=== PATIENT | female | born 2000 ===

== ENCOUNTER 2023-06-30 21:25 | Emergency (ER) | payer MEDICAID, SELFPAY ==
[2023-06-30 21:56] VITALS: BP 111/69; PULSE 94; RESP 18; TEMP 37.1; O2SAT 99; BMI 25.7
--- NOTE | 2023-06-30 22:10 | CRLHL7_ITS ---
For Patients: As a result of the Century Cures Act, medical imaging exams and procedure reports are released immediately into your electronic medical record. You may view this report before your referring provider. If you have questions, please contact your health care provider. INDICATION: First trimester dating. TECHNIQUE: Ultrasound OB pelvis transabdominal and transvaginal. Real-time aceves-scale imaging of the pelvis was performed. COMPARISON: None. FINDINGS: Intrauterine gestation: Present. Embryo present: Yes. Embryo cardiac activity: None. [place] rump Length: 2.9 cm. Sonographic gestational age: 9 weeks and 5 days. Sonographic estimated due date: 01/28/2024. Yolk sac: Normal. Perigestational hemorrhage: Small amount of subchorionic hypoechogenicity, compatible with subchorionic hematoma. Ovaries and adnexae: Unremarkable. No suspicious lesions or fluid collections. IMPRESSION: Intrauterine gestation without sonographic evidence of cardiac activity, concerning for nonviable . Small subchorionic hemorrhage. Obstetric consultation is advised. Dictated by Higinio Fiore MD @ 06/30/2023 11:42:44 PM (Electronically Signed)
[2023-06-30 22:47] LABS: Chloride* 106 mmol/L (96-114); Potassium* 3.6 mmol/L (3.6-5.1); Sodium* 141 mmol/L (135-149)
[2023-06-30 22:50] LABS: Anion Gap 11 mEq/L (7-15); Blood Urea Nitrogen* 3 mg/dL (5-24); Carbon Dioxide* 24 mmol/L (20-32); Creatinine* 0.4 mg/dL (0.5-1.5); Est. Creatinine Clearance* 169.29; Estimated Glomerular Filt Rate 145 ml/min
[2023-06-30 22:51] LABS: Calcium* 9.7 mg/dL (8.4-10.6); Glucose* 98 mg/dL (60-115)
--- NOTE | 2023-06-30 22:59 | ED.GENADULT ---
HPI - General Adult General Date Seen: 06/30/23 Chief complaint: OB/Uterine Contractions Stated complaint: Contractions,Abdominal pain/Bleeding Time Seen by Provider: 06/30/23 21:58 History of Present Illness HPI narrative: This is a 22-year-old female. she speaks Malawian as her primary language and does not speak much Serbian. She presents to the ER today with her friend. They declined a spot formal shop mechanic to me and they 1 her friend to interpret. She is . She follows with the [facility] for her care. She believes she is about 14 weeks based on ultrasound done through [facility]. She reports this morning she is having some uterine/suprapubic discomfort in her abdomen. It is crampy. It shoots and comes and goes. She is also having some light pink spotting per vagina. No fever. No dysuria. No urgency or frequency. Bowel movements normal. No flank pain. No recent illness or any known abdominal injury. She says she follows with the [facility] clinic. She knows that she is 14 weeks based on previous obstetric ultrasound. When I pull up her records through [facility] everywhere to review of colitis results I see that she was actually seen earlier this morning in the clinic by Dr. Sheldon. From the clinic note 06/30/2023, doctors and IUFD at less than 20 weeks of gestation- Patient presents for repeat ultrasound (first US showed enlarged yolk sac). Unfortunately, US shows no heart tones. Formal radiology read pending. Unclear measurements. Discussed options for evacuation of uterus. Patient wishes to consider options and return tomorrow. Will come back tomorrow morning at 10 am to continue conversation. Recommend urgent evaluation with fever, heavy bleeding, severe pain. Patient is in agreement with plan. Partner is also in attendance. Work note is provided. Recheck-I read obtain further history using the formal iPad shop mechanic. It turns out the patient did have a checkup with her OB doctor at the [facility] this morning. The patient was aware that she had an ultrasound showing that her baby did not have a heartbeat. She says that overall her pain at this time is light and that her bleeding is light and pink. She is not soaking through more than 1 pad all evening. She came to the ER tonight because she wanted a 2nd opinion. She did not want to believe that her baby was and that she was having a miscarriage. She does not know her blood type. Related Data Home Medications Medication Instructions Recorded Confirmed 06/30/23 Allergies Allergy/AdvReac Type Severity Reaction Status Date / Time No Known Drug Allergies Allergy Verified 06/30/23 21:59 Exam Narrative: Exam Narrative: Constitutional: Appears well-developed and well-nourished. Alert. Conversant. Non toxic. HENT: Head: Atraumatic. Nose: Nose normal. Mouth/Throat: Oral mucosa is clear and moist. no trismus. Pharynx normal. Tonsils symmetric. No tonsillar enlargement, erythema, or exudate. Eyes: Conjunctivae normal. EOM normal. Pupils equal, round, and reactive to light. No scleral icterus. Neck: Normal range of motion. Neck supple. No tracheal deviation present. Cardiovascular: Normal rate, regular rhythm. No gallop. No friction rub. No murmur heard. Symmetric radial artery pulses. Normal cap refill. Pulmonary/Chest: Effort normal. No stridor. No respiratory distress. No wheezes. No rales. No rhonchi . No tenderness. Abdominal: Soft. Bowel sounds normal. No distension. No mass. Suprapubic tenderness. I think she does have some suprapubic fullness likely a gravid uterus, but is well below her umbilicus. No rebound. No guarding. Musculoskeletal: RUE: Normal range of motion. No tenderness. No deformity LUE: Normal range of motion. No tenderness. No deformity RLE: Normal range of motion. No edema. No tenderness. No deformity LLE: Normal range of motion. No edema. No tenderness. No deformity Neurological: Alert and oriented to person, place, and time. Normal strength. CN II-VII intact. No sensory deficit. GCS eye subscore is 4. GCS verbal subscore is 5. GCS motor subscore is 6. Normal coordination Skin: Skin is warm and dry. No rash noted. No pallor. Normal capillary refill. Psychiatric: Normal mood. Normal affect. Const: Vital Signs, click to edit/add: Vital Signs - 24 hr 06/30/23 21:56 Temperature 98.7 F Pulse Rate [Pulse Oximeter] 94 Respiratory Rate 18 Blood Pressure [Ri ght Upper Arm] 111/69 Pulse Oximetry 99 Oxygen Delivery Me thod Room Air Course Vital Signs Vital signs: Initial Vital Signs Temperature 98.7 F 06/30/23 21:56 Temperature Source Temporal Artery Scan 06/30/23 21:56 Pulse Rate 94 06/30/23 21:56 Respiratory Rate 18 06/30/23 21:56 Blood Pressure 111/69 06/30/23 21:56 Blood Pressure Mean 83 06/30/23 21:56 Blood Pressure Position Sitting 06/30/23 21:56 Pulse Oximetry 99 06/30/23 21:56 Oxygen Delivery Method Room Air 06/30/23 21:56 Vital Signs Temperature 98.7 F 06/30/23 21:56 Pulse Rate 94 06/30/23 21:56 Respiratory Rate 18 06/30/23 21:56 Blood Pressure 111/69 06/30/23 21:56 Pulse Oximetry 99 06/30/23 21:56 Oxygen Delivery Method Room Air 06/30/23 21:56 Temperature 98.7 F 06/30/23 21:56 Pulse Rate 94 06/30/23 21:56 Respiratory Rate 18 06/30/23 21:56 Blood Pressure 111/69 06/30/23 21:56 Pulse Oximetry 99 06/30/23 21:56 Oxygen Delivery Method Room Air 06/30/23 21:56 Medical Decision Making MDM Narrative Medical decision making narrative: This female patient presents for evaluation of pelvic/suprapubic pain and light pink vaginal bleeding. She is currently 14 weeks by dates.. I considered a broad differential including ectopic , ovarian cyst, UTI, pyelonephritis, subchorionic hemorrhage, uterine bleeding, active miscarriage, constipation, etc. Non gynecologic causes considered included , appendicitis, cholecystitis, volvulus, intraabdominal abscess, among others. In this patient, there are no signs of serious etiologies of abdominal pain. The workup here suggests incomplete miscarriage. She has a intrauterine fetus <suspected dates and without any heartbeat. This is not a viable . There is a subchorionic hemorrhage. At this point, patient is hemodynamically stable, hemoglobin is reassuring, and bleeding is not predicted to become life threatening. It turns out that the patient was already aware of her intrauterine demise based on ultrasound done in the [facility] this morning. [facility]. Overall she is not having worsening pain or heavier bleeding. I had a long discussion with the patient and her friend through the formal [place]ian supply controller iPad. We discussed that management of her miscarriage would be individualized to her physical and emotional needs. At this point without heavy bleeding or significant pains or signs of infection, no indication for emergent D and C tonight. However she may elect to go ahead with a D&C just to hasten the miscarriage from a mental standpoint. Alternatively, his lung his bleeding is light and pain is minimal, she may also elect to pursue non operative management. At this time bleeding is light, hemodynamics are stable, she is only mildly anemic but not requiring transfusion. She and her friend would prefer for her to wait and see tonight goes . Plan is home, close follow-up with OB tomorrow morning at 10:00 a.m. discussed miscarriage precautions, and return to ED for worsening pain, heavy vaginal bleeding (more than 1 pad soaked every hour). Questions were answered. Lab Data Labs: Lab Results 06/30/23 Range/Units 22:20 WBC 9.74 (4.50-11.00) K/uL RBC 5.09 (4.00-5.20) m/uL Hgb 10.2 L (12.0-16.0) gm/dL Hct 33.1 (33.0-51.0) % MCV 65 L (80-100) fL MCH 20 L (26-34) pg MCHC 31 L (32-36) gm/dL RDW Coeff of Trisha 22.8 H (11.5-15.5) % Plt Count 289 (140-440) K/uL Neut % (Auto) 64.6 (42.0-72.0) % Lymph % (Auto) 28.3 (20-44) % [place] % (Auto) 6.6 (0.0-11.0) % Eos % (Auto) 0.2 (0.0-7.0) % Baso % (Auto) 0.2 (0.0-3.0) % Neut # (Auto) 6.29 (1.7-7.0) K/uL Lymph # (Auto) 2.76 (0.90-2.90) K/uL [place] # (Auto) 0.60 (0.00-0.90) K/UL Eos # (Auto) 0.02 (0.00-0.50) K/uL Baso # (Auto) 0.02 (0.00-0.30) K/uL Abs Immat Gran (auto) 0.01 (0.00-0.30) K/uL Imm/Tot Granulo (auto) 0.1 % Sodium 141 (135-149) mmol/L Potassium 3.6 (3.6-5.1) mmol/L Chloride 106 (96-114) mmol/L Carbon Dioxide 24 (20-32) mmol/L Anion Gap 11 (7-15) mEq/L BUN 3 L (5-24) mg/dL Creatinine 0.4 L (0.5-1.5) mg/dL Estimated Creat Clear 169.29 Estimated GFR 145 ml/min Glucose 98 (60-115) mg/dL Calcium 9.7 (8.4-10.6) mg/dL HCG, Quant 347.10 mIU/mL Blood Type O Positive Antibody Screen NEGATIVE Discharge Plan Discharge Clinical Impression: Incomplete Patient Disposition: Home, Self-Care Condition: Stable Instructions: Miscarriage (ED) Additional Instructions: He please come back to the ER right away if you have worsening pain, heavy bleeding (more than 1 pad per hour), lightheadedness or weakness, fever, or any problems. Please follow-up with your doctor at the [facility] tomorrow morning for a recheck. Prescriptions: No Action Follow Up/Referrals: Provider,Not a Local [Primary Care Provider] - Stand Alone Forms: [facility] Info Instructions
[2023-06-30 23:22] LABS: Basophils Absolute Auto 0.02 K/uL (0.00-0.30); Basophils Percent Auto 0.2 % (0.0-3.0); Eosinophils Absolute Auto 0.02 K/uL (0.00-0.50); Eosinophils Percent Auto 0.2 % (0.0-7.0); Hematocrit 33.1 % (33.0-51.0); Hemoglobin* 10.2 gm/dL (12.0-16.0); Immature Granulocytes Abs Auto 0.01 K/uL (0.00-0.30); Immature Granulocytes Pct Auto 0.1 %; Lymphocytes Absolute Auto 2.76 K/uL (0.90-2.90); Lymphocytes Percent Auto 28.3 % (20-44); Mean Corpuscular HGB Conc 31 gm/dL (32-36); Mean Corpuscular Hemoglobin 20 pg (26-34); Mean Corpuscular Volume 65 fL (80-100); Monocytes Percent Auto 6.6 % (0.0-11.0); Neutrophils Absolute Auto 6.29 K/uL (1.7-7.0); Neutrophils Percent Auto 64.6 % (42.0-72.0); Platelet Count* 289 K/uL (140-440); RDW Coefficient of Variation % 22.8 % (11.5-15.5); Red Blood Count 5.09 m/uL (4.00-5.20); White Blood Count* 9.74 K/uL (4.50-11.00)
[2023-06-30 23:27] LABS: Slide Review Reflex No
[2023-06-30 23:55] VITALS: BP 116/73; PULSE 81; RESP 18; TEMP 36.7; O2SAT 99
== END 2023-07-01 00:20 | disposition home or self-care (01) ==
PROVIDERS: Emergency Provider Emergency Medicine
DX: O03.4 Incomplete spontaneous abortion without complication (principal)
CPT/HCPCS: 36415; 76801; 80048; 84702; 85025; 86850; 86900; 86901; 87491; 87591; 99283; 99284

== ENCOUNTER 2023-07-03 06:25 | Day surgery (SDC) | payer MEDICAID, SELFPAY ==
[2023-07-03 06:43] VITALS: BP 106/65; PULSE 78; RESP 16; TEMP 37.3; O2SAT 99; BMI 26.9
[2023-07-03] MEDS: DOXYCYCLINE HYCLATE 200 MG in 0.9 % SODIUM CHLORIDE 250 ml 250 ML 250 MG IVPB (06:45)
[2023-07-03] MEDS: LACTATED RINGERS 1000 ML 1,000 ML 100 ML IV (06:45)
[2023-07-03] MEDS: SODIUM CHLORIDE 0.9 % (FLUSH) 10 ML SYRINGE IVF (07:35)
[2023-07-03] MEDS: LIDOCAINE 1% MDV 20 ML INJECTION (08:20)
[2023-07-03] MEDS: BUPIVACAINE 0.25% 30 ML INJECTION (08:20)
--- NOTE | 2023-07-03 08:34 | W.PM.GYNPROC ---
Procedure Note Time Seen by Provider: 08:34 Date of procedure: 07/03/23 Pre-op diagnosis: Missed Post-op diagnosis: same Procedure: Dilation and suction curettage. Anesthesia: MAC and local (Paracervical block) Complications: None Surgeon: Kasey Solares MD Estimated blood loss (mL): 10 Pathology: specimen obtained, sent to pathology (Products of conception) Condition: stable Disposition: same day Findings: Moderate amount of products of conception Procedure Description: INDICATIONS: The patient is a 22-year-old who presented to her primary clinic for follow-up ultrasound at 14 weeks gestation, and was found to have a nonviable . At the time of the ultrasound, crown-rump length was consistent with 9 weeks 5 days and there was no evidence of cardiac activity. The yolk sac had previously been noted to be enlarged by ultrasound. She was treated preoperatively with intravaginal Cytotec 400 mcg. PROCEDURE: After obtaining informed consent with the assistance of a disassembler product, the patient was taken to the operating room where she received monitored anesthesia care. She was prepared and draped in the normal, sterile fashion in the dorsal lithotomy position. 200 mg of IV doxycycline was administered intravenously. An examination was performed under anesthesia which demonstrated a normal sized anteverted uterus. An open-sided bivalve speculum was placed into the vagina and the cervix easily visualized. The anterior lip of the cervix was grasped with a single-tooth tenaculum for traction. A paracervical block was administered using a total of 20 mL of a 50:50 mixture of 1% lidocaine and 0.25% Marcaine, plain. A sound was gently inserted through the cervical os into the uterus to the level of the fundus. Sound length was 9.5 cm. The cervix was gently dilated using Hegar dilators to a # 10 dilator. A 10 mm rigid, curved suction cannula was advanced through the cervical os into the uterine cavity. Gentle suction was applied, and the uterine lining gently curetted. A Mater amount of products of conception and blood was removed. The suction cannula was removed. The uterine lining was gently explored using a sharp curette, and a gritty feel was felt throughout. One final pass was made with the suction cannula, no further tissue was recovered. All instruments were then removed. The patient tolerated the procedure well. Sponge, lap, and needle counts were reported as correct x2. The patient was taken to the recovery room awake and in stable condition.
[2023-07-03 08:36] VITALS: BP 89/52; PULSE 95; RESP 14; TEMP 36.7; O2SAT 94
--- NOTE | 2023-07-03 08:40 | P.GYNCN_ITS ---
DIRECTOR POST - CN: HPI Data of Consult Time Seen by Provider: 07:30 Date Seen: 07/03/23 Patient: [facility] Patient Consult date: 07/03/23 Requesting Physician: Kasey Solares MD Primary Care Provider: Maria G Sheldon MD Consult Narrative Reason for consult: early complication (Early intrauterine d emise, consult for suction curettage) Narrative: Maru Hernández is a 22 year old female who presents to the [facility] same-day surgery center for suction curettage. [facility]. The history was obtained with the assistance of a racecar driver. The patient is accompanied by her long- term boyfriend. A telephone consultation was done between Dr. Sheldon and my partner, Dr. Mtz, and the patient was scheduled for the surgical procedure. She premedicated herself, as directed, with intravaginal misoprostol in the middle of the night. The patient had been receiving her care through the [facility] [employer] system. She had had an ultrasound early in the that was somewhat concerning due to the finding of an enlarged yolk sac. A repeat ultrasound was performed during her visit in the clinic on 06/30/2023, at which time she was 14 weeks gestation by last menstrual period. Unfortunately, the scan confirmed intrauterine demise. She presented to the emergency department at [facility] later that day for confirmation of the early loss, as she was not wanting to believe that her fetus was . Ultrasound was again performed which showed a nonviable fetus (no heart tones) with a crown-rump length consistent with a 9 week 5 day gestation, and a significant betsy-gestational hemorrhage. This morning, the patient complains of some low abdominal cramping and vaginal bleeding. When she first arrived at the hospital, she went to the bathroom near the emergency department and passed some clots. The patient and her boyfriend tell me that they have been together not using contraception, but being careful for seven years. The was i ntentional. Now, the patient would prefer to wait another year before re- attempting . She would like to discuss contraceptive options. She has never used any prescription contraceptive methods. The patient was diagnosed with chlamydia, yeast vaginitis, and bacterial vaginosis at her initial OB visit. Based on the clinic notes received, she did not roller picker the prescriptions that were initially sent in. She did take the medication for chlamydia infection following her preoperative history and physical appointment. Her partner was not evaluated nor was he offered treatment. The patient has no prior history of surgeries or significant medical history. This was her first . cc:: CC: Kasey Solares MD Review of Systems Status of ROS: Reports: 6 or more systems reviewed and unremarkable except as noted in History and below PFSH [facility] Social History Smoking Status: Never smoker Do you use any of these nicotine containing products: None How often do you have a drink containing alcohol: never How often do you have six or more drinks on one occasion: Never AUDIT-C Alcohol total score: 0 Non-prescribed substance use: denies use Caffeine: Yes Are you using contraception or practicing any form of control: No Meds Home Medications and Allergies Home Medications Medication Instructions Recorded Confirmed Type 06/30/23 History ferrous sulfate 325 mg (65 mg 325 mg PO DAILY 07/02/23 07/03/23 History iron) tablet,delayed release Allergies Allergy/AdvReac Type Severity Reaction Status Date / Time No Known Drug Allergies Allergy Verified 07/03/23 06:42 DIRECTOR POST - Exam Physical Exam: Vital signs: Temp Pulse Resp BP Pulse Ox O2 Del Method 99.1 F 78 16 106/65 99 Room Air 07/03/23 06:43 07/03/23 06:43 07/03/23 06:43 07/03/23 06:43 07/03/23 06:43 07/03/23 06:43 Constitutional: Constitutional: no acute distress, average body habitus and cooperative Routine HEENT Exam: Head: Present atraumatic Routine Neck Exam: NECK: Present supple Routine Respiratory Exam: Respiratory: Absent respiratory distress Routine Abdominal Exam: Abdominal: Present soft; Absent distended or tenderness Routine Exam: External: Present normal external exam Routine Extremities Exam: Extremities: Absent pedal edema DIRECTOR POST - Results Labs Labs: Blood type O positive per [facility] records. Assessment and Plan Assessment and plan (1) Missed : Status: Acute Plan 1. The patient was already aware that the was nonviable. We reviewed the relative risks and benefits of the proposed surgical procedure, dilatation and suction curettage, risks including, but not limited to, bleeding, infection, injury to the uterus or other organs, and retained products of conception. We discussed the rationale for premedicating using vaginal misoprostol, and how this precipitated some bleeding and cramping. It is doubtful that she has passed all of the products of conception, so I would still recommend proceeding with surgery as scheduled today. We discussed postoperative pain management, signs symptoms of infection or when to seek medical care, and routine follow-up. Her questions were answered. Informed consent was obtained. 2. Contraceptive options were reviewed with the patient. We discussed oral contraceptive pills, contraceptive patch, NuvaRing, injections (Depo-Provera), condoms, and intrauterine devices. The patient chose to have a Depo-Provera injection administered today to protect her against for the next three months. She will follow-up in the clinic to determine whether not to continue this method or switch to another method. 3. The patient indicated that she might like to transfer her medical care to the [facility]. She will see me in two weeks for a postoperative evaluation and establishment of care. 4. The patient's partner needs to be treated for the chlamydia infection as well, before the couple can resume sexual relations together. He does not have a physician or clinic at which he is seen. I recommended that he register as a patient with the [facility]. Once he is registered, I can send in a prescription for him, assuming that he does not have any significant medical contraindications or allergies.
--- NOTE | 2023-07-03 08:41 | W.ANESCHARGE ---
Anesthesia Charges Start Date/Time Anesthesia Start Date: 07/03/23 Anesthesia Start Time: 07:59 Stop Date/Time Anesthesia Stop Date: 07/03/23 Anesthesia Stop Time: 08:40
[2023-07-03 08:45] VITALS: BP 90/51; PULSE 89; RESP 14; O2SAT 93
[2023-07-03 09:00] VITALS: BP 94/60; PULSE 72; RESP 16; O2SAT 96
[2023-07-03 09:15] VITALS: BP 89/59; PULSE 77; RESP 16; O2SAT 99
--- NOTE | 2023-07-03 09:27 | W.ANESCHARGE ---
Anesthesia Charges Start Date/Time Anesthesia Start Date: 07/03/23 Anesthesia Start Time: 07:59 Stop Date/Time Anesthesia Stop Date: 07/03/23 Anesthesia Stop Time: 08:40
--- NOTE | 2023-07-03 09:28 | SUR.PHASEII ---
Tolerating water and toast.
== END 2023-07-03 09:55 | disposition home or self-care (01) ==
PROVIDERS: PCP Family Medicine; Visit Provider Obstetrics & Gynecology
PROC: (CPT 59821; principal; 2023-07-03 07:30)
DX: O02.1 Missed abortion (principal); Z3A.14 14 weeks gestation of pregnancy
CPT/HCPCS: 59821; 01965; 88305; T1013; J0665; J1050; J1100; J1885; J2250; J2405; J2704; J3010; J7050; J7120

== ENCOUNTER 2024-05-06 11:22 | Outpatient (CLI) | payer MEDICAID, SELFPAY ==
--- NOTE | 2024-05-06 11:30 | CRLHL7_ITS ---
For Patients: As a result of the Century Cures Act, medical imaging exams and procedure reports are released immediately into your electronic medical record. You may view this report before your referring provider. If you have questions, please contact your health care provider. INDICATION: First trimester scan, establish dates. COMPARISON: None. TECHNIQUE: Real-time aceves-scale imaging of the pelvis was performed. FINDINGS: Sonographic imaging demonstrates a single living intrauterine gestation. The embryo demonstrates a regular cardiac rate measuring 173 beats per minute. The embryo`s crown-rump length measurement of 3.1 cm corresponds to a gestational age of 10 weeks 0 days with a sonographic due date of 12/02/2024. There is a normal-appearing yolk sac. There are no gross abnormalities noted within the embryo at this early state of development. The gestational sac has a normal appearance. There is no evidence of a perigestational hemorrhage. The amount of fluid within the sac appears appropriate for gestational age. The cervix is closed. The myometrium appears normal. The ovaries are of normal size. Corpus luteal cyst right ovary measures 1.6 x 1.3 x 1.6 cm. There are no suspicious fluid collections noted in the cul-de-sac. IMPRESSION: Normal first trimester OB ultrasound exam. Gestational age calculated at 10 weeks 0 days with a sonographic due date of 12/02/2024. Dictated by Nick Almazan MD @ 05/08/2024 8:08:38 AM (Electronically Signed)
== END 2024-05-06 11:23 | disposition home or self-care (01) ==
LOC: US 11:23
PROVIDERS: PCP Family Medicine; Visit Provider Registered Nurse
DX: Z34.91 Encounter for supervision of normal pregnancy, unspecified, first trimester (principal); Z3A.10 10 weeks gestation of pregnancy; Z12.4 Encounter for screening for malignant neoplasm of cervix
CPT/HCPCS: 76801; 76817; 86592; 86703; 86704; 86706; 86762; 86787; 86803; 86850; 86900; 86901; 87086; 87340; 87491; 87591; 88142; T1013

== ENCOUNTER 2024-05-31 15:41 | Outpatient (CLI) | payer MEDICAID, SELFPAY | END 2024-05-31 15:42 | disposition home or self-care (01) | PROVIDERS: PCP Family Medicine; Visit Provider Physician Assistant | DX: O21.0 Mild hyperemesis gravidarum (principal) | CPT/HCPCS: 80048; 83021 ==

== ENCOUNTER 2024-06-07 12:24 | Outpatient (CLI) | payer MEDICAID, SELFPAY | END 2024-06-07 12:25 | disposition home or self-care (01) | PROVIDERS: PCP Family Medicine; Visit Provider Registered Nurse | DX: O21.0 Mild hyperemesis gravidarum (principal) | CPT/HCPCS: 80048 ==

== ENCOUNTER 2024-07-08 12:58 | Outpatient (CLI) | payer MEDICAID, SELFPAY ==
--- NOTE | 2024-07-08 13:00 | CRLHL7_ITS ---
For Patients: As a result of the Century Cures Act, medical imaging exams and procedure reports are released immediately into your electronic medical record. You may view this report before your referring provider. If you have questions, please contact your health care provider. INDICATION: Evaluate anatomy. COMPARISON: 05/06/2024 TECHNIQUE: Real time aceves scale imaging of the fetus was performed as well as color Doppler analysis of the umbilical vessels. FINDINGS: Sonographic imaging demonstrates a single living intrauterine gestation. Fetus demonstrates a regular cardiac rate of 144 beats per minute. Fetus has a breech position. The placenta lies posteriorly without evidence of placenta previa. Placental edge 5.0 cm from the internal cervical os. Amniotic fluid volume appears normal. Single deepest vertical pocket: 3.8 cm. The cervix is closed and measures 3.7 cm in length. The composite ultrasound gestational age is calculated at 19 weeks 1 day with an estimated sonographic due date of 12/01/2024. The estimated weight is 275 grams which lies at the 12th %. The following biometric measurements were obtained: Biparietal diameter: 4.4 cm/19 weeks 1 day 22nd% Head circumference: 16.5 cm/19 weeks 1 day 15th% Abdominal circumference: 13.3 cm/18 weeks 5 days 14th% Femur length: 3.1 cm/19 weeks 3 days 29th% The HC/AC ratio measures: 1.24 range (1.09-1.26) On anatomic survey, there is a normal appearance of the cerebral ventricles, cavum septi pellucidi, cisterna magna and cerebellum. The nose, lips, and facial profile appear normal. The cervical, thoracic and lumbar spine are well visualized and appear normal. There is a normal four-chamber heart view and the left and right ventricular outflow tracts appear normal. The diaphragm and stomach appear normal. The kidneys and bladder also appear normal. There is a normal three-vessel cord and cord insertion site. Incomplete visualization of the feet. Hands appear normal. IMPRESSION: Concordance of clinical and sonographic dating. Incomplete visualization of the feet. Remainder of the anatomic survey is normal. Short-term follow-up recommended. Placenta is posterior and appears bilobed. No previa. Estimated weight 12th percentile. Dictated by Nick Almazan MD @ 07/08/2024 7:48:22 PM (Electronically Signed)
== END 2024-07-08 12:59 | disposition home or self-care (01) ==
LOC: US 12:58
PROVIDERS: PCP Family Medicine; Visit Provider Physician Assistant
DX: Z34.92 Encounter for supervision of normal pregnancy, unspecified, second trimester (principal); Z3A.19 19 weeks gestation of pregnancy
CPT/HCPCS: 76805; T1013